=== PATIENT | male | born 1930 | race Caucasian/White ===

== ENCOUNTER 2018-01-22 05:40 | Inpatient (IN) ==
[2018-01-22] MEDS ORDERED: methylPREDNISolone 125 MG/2 ML VIAL IVP ONE (05:49)
[2018-01-22] MEDS ORDERED: Ipratropium/Albuterol Neb 3 ML IH ONE (05:49)
[2018-01-22] MEDS ORDERED: 0.9 % Sodium Chloride 500 ML IVC ONE (05:55)
--- NOTE | 2018-01-22 05:56 | Emergency Department Note ---
Disposition Clinical Impression: COPD exacerbation, Respiratory distress Disposition: Admitted As Inpatient Condition: Good Referrals: Batsheva Ochoa CNP [Primary Care Provider] - Forms: ED Satisfaction Letter Time of Disposition: 06:56 General Adult HPI - General Chief complaint: ED Shortness of Breath/Dyspnea Stated complaint: sob Time Seen by Provider: 01/22/18 05:44 Source: patient Mode of arrival: EMS Limitations: no limitations Nursing Notes Reviewed: Yes Vital Signs Reviewed: Yes - History of Present Illness HPI Narrative: 87-year-old male with history of COPD presents for evaluation of dyspnea. Patient states symptom onsets been over the past for 5 days. Patient was evaluated for 5 days ago and was diagnosed with bronchitis. Patient was given antibiotic shot as well as steroids. Patient is also given azithromycin. Family states the patient has all but 2 days left of the azithromycin. Patient states his symptoms have persisted. Patient does not wear oxygen at home. Patient notes a nonproductive cough. Patient is chest pain related to the cough. Patient denies any nausea or vomiting. Patient reports subjective fevers. Denies any abdominal pain. - Related Data Allergies Allergy/AdvReac Type Severity Reaction Status Date / Time No Known Allergies Allergy Verified 01/22/18 05:48 All systems ED: reviewed and negative except as stated. Constitutional: Reports: fever Cardiovascular: Reports: chest pain Respiratory: Reports: cough, dyspnea. Denies: sputum production Gastrointestinal: Denies: abdominal pain, nausea, vomiting Past Medical History - Past Medical History Source: patient Physical Exam - General Limitations: no limitations General appearance: alert, in no apparent distress - Head Head exam: atraumatic, normocephalic, normal inspection - Eye Eye exam: Present: normal appearance, PERRL, EOMI - ENT ENT exam: normal exam - Neck Neck exam: Present: normal inspection - Chest Chest inspection: Present: normal inspection - Respiratory Respiratory exam: Present: wheezes (Diffuse inspiratory and expiratory wheezes throughout), accessory muscle use, prolonged expiratory phase - Cardiovascular Cardiovascular exam: Present: normal rhythm, tachycardia. Absent: systolic murmur - Abdominal Exam Abdominal exam: Present: soft, Non-Tender - Extremities Exam Extremities exam: Present: normal inspection. Absent: pedal edema - Back Exam Back exam: Present: normal inspection - Neurological Exam Neurological exam: Present: alert - Skin Skin exam: Present: warm, dry, intact, normal color Course Course Narrative: Patient will get aerosols, steroids. Patient will also get basic labs chest x- ray disposition likely admission. - Reevaluation(s) Reevaluation #1: Patient seen and examined. Patient's breathing more comfortably. Patient has better air exchange. Patient was updated on plan of care. Patient will be admitted for COPD exacerbation. Time: 06:50 Vital Signs Temperature 98.1 F 01/22/18 05:49 Pulse Rate 95 01/22/18 05:49 Respiratory Rate 16 01/22/18 05:49 Blood Pressure 168/113 01/22/18 05:49 O2 Sat by Pulse Oximetry 88 01/22/18 05:49 Temperature 98.1 F 01/22/18 05:49 Pulse Rate 82 01/22/18 06:36 Respiratory Rate 30 01/22/18 06:36 Blood Pressure 160/104 01/22/18 06:36 O2 Sat by Pulse Oximetry 97 01/22/18 06:36 Oxygen Delivery Oxygen Delivery Bipap Medical Decision Making - MDM Narrative Medical decision making narrative: Patient presents with increased work of breathing and a history of COPD. Patient did have increased work of breathing requiring supplemental oxygen and BiPAP. Patient was treated with nebs and steroids. Patient's breathing improved. Patient was on azithromycin in the past. Given the patient's work of breathing with a nonproductive cough patient will be started on antibiotics. Patient will be admitted to the hospitalist service. Patient's symptoms are most consistent with a COPD exacerbation. Patient has no risk factors for pulmonary embolism. Patient denies any chest pain. - Lab Data Lab results reviewed: Yes I reviewed the patient's lab results. Result diagrams: 01/22/18 06:04 Lab Results 01/22/18 01/22/18 01/22/18 Range/Units 06:04 06:04 06:04 WBC 10.0 (4.3-11.1) K/mcL RBC 4.42 (4.19-5.50) M/mcL Hgb 15.0 (12.9-16.9) g/dL Hct 45.3 (37.5-50.1) % MCV 102.5 H (83.0-100.0) fL MCH 33.9 H (28.0-33.3) pg MCHC 33.1 (31.6-35.5) g/dL RDW 12.8 (11.5-14.5) % Plt Count 244 (140-400) K/mcL MPV 10.5 (9.4-12.4) fL Immature Gran % 0.4 (0-4) % Seg Neutrophils % 70.7 % Lymphocytes % 15.5 % Monocytes % 12.6 % Eosinophils % 0.3 % Basophils % 0.5 % Neutrophils # 7.1 (1.6-8.9) K/mcL Lymphocytes # 1.6 (0.6-4.6) K/mcL Monocytes # 1.3 (0.0-1.3) K/mcL Eosinophils # 0.0 (0.0-0.6) K/mcL Basophils # 0.1 (0.0-0.2) K/mcL VBG pH (7.32-7.42) pH Units VBG pCO2 (41-51) mmHg VBG pO2 (25-50) mmHg VBG HCO3 (21-27) mEq/L Lactic Acid 1.1 (0.5-2.2) mmol/L Troponin I 0.03 (< 0.04) ng/mL B-Natriuretic Peptide (Less than 100) pg/mL 01/22/18 01/22/18 Range/Units 06:04 06:20 WBC (4.3-11.1) K/mcL RBC (4.19-5.50) M/mcL Hgb (12.9-16.9) g/dL Hct (37.5-50.1) % MCV (83.0-100.0) fL MCH (28.0-33.3) pg MCHC (31.6-35.5) g/dL RDW (11.5-14.5) % Plt Count (140-400) K/mcL MPV (9.4-12.4) fL Immature Gran % (0-4) % Seg Neutrophils % % Lymphocytes % % Monocytes % % Eosinophils % % Basophils % % Neutrophils # (1.6-8.9) K/mcL Lymphocytes # (0.6-4.6) K/mcL Monocytes # (0.0-1.3) K/mcL Eosinophils # (0.0-0.6) K/mcL Basophils # (0.0-0.2) K/mcL VBG pH 7.39 (7.32-7.42) pH Units VBG pCO2 42 (41-51) mmHg VBG pO2 65 H (25-50) mmHg VBG HCO3 26 (21-27) mEq/L Lactic Acid (0.5-2.2) mmol/L Troponin I (< 0.04) ng/mL B-Natriuretic Peptide 295 H (Less than 100) pg/mL - Radiology Data Radiology results reviewed: Yes I reviewed the patient's radiology results. Chest X-Ray 01/22/18 05:49 IMPRESSION: No acute cardiopulmonary findings. Pulmonary hyperinflation may reflect underlying obstructive small airways disease such as asthma or COPD in a smoker. D/ / Navneet Silva / Navneet Silva Interpreting Provider: Navneet Silva - EKG Data EKG #1 EKG attestation: Yes I reviewed and interpreted this EKG. EKG shows normal: sinus rhythm Rate: normal Rhythm: NSR [place]/QRS: LAHB/LAFB Q waves: v1, v2, v3 Interpretation: no acute changes S.B.A.R. - S.B.A.R. Situation: Demographics Background: Presenting Complaint Assessment: Vital Signs Recommendation: Barrier(s) to disposition, Recommendation based on pending studies, treatments, or consults S.B.A.R. Report Given to: Dr. Jonah BrandB.AAston Repor Time: 06:51
[2018-01-22] MEDS ORDERED: Azithromycin 500 MG in D5% in Water 250 ML IVPB ONE (06:20)
[2018-01-22 06:22] LABS: VBG HCO3 26 mEq/L (21-27); VBG PCO2 42 mmHg (41-51); VBG PH 7.39 pH Units (7.32-7.42); VBG PO2 65 mmHg (25-50)
[2018-01-22] MEDS ORDERED: Levofloxacin 750 MG/150 ML 750 MG/150 ML BAG IVPB ONE (06:27)
--- NOTE | 2018-01-22 06:27 | Emergency Department Note ---
Disposition Clinical Impression: COPD exacerbation, Respiratory distress Disposition: Admitted As Inpatient Condition: Good General Adult HPI - General Chief complaint: ED Shortness of Breath/Dyspnea Stated complaint: SHAUNA Time Seen by Provider: 01/22/18 05:44 Source: patient Mode of arrival: EMS Limitations: no limitations Nursing Notes Reviewed: Yes Vital Signs Reviewed: Yes - History of Present Illness Pain Scale: 0 - Related Data Home Medications Medication Instructions Recorded Confirmed Albuterol Neb [Proventil Neb] 2.5 mg IH Q4-6H PRN 01/22/18 01/22/18 Aspirin [Lo-Dose Aspirin EC] 81 mg PO DAILY 01/22/18 01/22/18 Benzonatate [Tessalon] 100 mg PO Q8H PRN 01/22/18 01/22/18 Carvedilol 3.125 mg PO BID 01/22/18 01/22/18 Ergocalciferol (VITAMIN D2) 50,000 unit PO 2XW 01/22/18 01/22/18 [Vitamin D2] Levothyroxine Sodium [Levoxyl] 112 mcg PO DAILY 01/22/18 01/22/18 Previous Rx's Medication Instructions Recorded Levofloxacin [Levaquin] 750 mg PO DAILY 4 Days #4 tablet 01/24/18 predniSONE [PredniSONE] See Taper PO BIDWM 12 Days #28 01/24/18 tablet Allergies Allergy/AdvReac Type Severity Reaction Status Date / Time No Known Allergies Allergy Verified 01/22/18 05:48 Constitutional: Reports: fever Cardiovascular: Reports: chest pain Respiratory: Reports: cough, dyspnea. Denies: sputum production Gastrointestinal: Denies: abdominal pain, nausea, vomiting Past Medical History - Past Medical History Medical history: Reports: hypertension, thyroid disease Psychiatric history: Reports: no psych history - Social History Smoking Status: Current every day smoker Smokeless Tobacco Status: No Alcohol use: Reports: none Drug use: Reports: none Physical Exam - General Limitations: no limitations General appearance: alert, in no apparent distress Course Vital Signs Temperature 98.1 F 01/22/18 05:49 Pulse Rate 95 01/22/18 05:49 Respiratory Rate 16 01/22/18 05:49 Blood Pressure 168/113 01/22/18 05:49 O2 Sat by Pulse Oximetry 88 01/22/18 05:49 Temperature 97.8 F 01/24/18 09:00 Pulse Rate 73 01/24/18 09:00 Respiratory Rate 15 01/24/18 09:00 Blood Pressure 141/76 01/24/18 09:00 O2 Sat by Pulse Oximetry 92 01/24/18 09:00 Oxygen Delivery Oxygen Delivery Bipap Medical Decision Making - Lab Data Result diagrams: 01/24/18 04:34 01/24/18 04:34 Lab Results 01/22/18 01/22/18 01/22/18 Range/Units 06:04 06:04 06:04 WBC 10.0 (4.3-11.1) K/mcL RBC 4.42 (4.19-5.50) M/mcL Hgb 15.0 (12.9-16.9) g/dL Hct 45.3 (37.5-50.1) % MCV 102.5 H (83.0-100.0) fL MCH 33.9 H (28.0-33.3) pg MCHC 33.1 (31.6-35.5) g/dL RDW 12.8 (11.5-14.5) % Plt Count 244 (140-400) K/mcL MPV 10.5 (9.4-12.4) fL Immature Gran % 0.4 (0-4) % Seg Neutrophils % 70.7 % Lymphocytes % 15.5 % Monocytes % 12.6 % Eosinophils % 0.3 % Basophils % 0.5 % Neutrophils # 7.1 (1.6-8.9) K/mcL Lymphocytes # 1.6 (0.6-4.6) K/mcL Monocytes # 1.3 (0.0-1.3) K/mcL Eosinophils # 0.0 (0.0-0.6) K/mcL Basophils # 0.1 (0.0-0.2) K/mcL VBG pH (7.32-7.42) pH Units VBG pCO2 (41-51) mmHg VBG pO2 (25-50) mmHg VBG HCO3 (21-27) mEq/L Sodium 134 L (136-145) mEq/L Potassium 4.3 (3.5-5.1) mEq/L Chloride 102 (98-107) mEq/L Carbon Dioxide 23 (23-29) mEq/L BUN 25 H (8-23) mg/dL Creatinine 1.25 (0.70-1.30) mg/dL Est GFR ( Amer) > 60 (> 60) Est GFR (Non-Af Amer) 55 L (> 60) BUN/Creatinine Ratio 20 (6-26) Glucose 143 H (70-105) mg/dL Calculated Osmolality 285 (280-300) Lactic Acid 1.1 (0.5-2.2) mmol/L Calcium 9.9 (8.6-10.3) mg/dL Troponin I 0.03 (< 0.04) ng/mL B-Natriuretic Peptide (Less than 100) pg/mL 01/22/18 01/22/18 01/22/18 Range/Units 06:04 06:20 07:49 WBC (4.3-11.1) K/mcL RBC (4.19-5.50) M/mcL Hgb (12.9-16.9) g/dL Hct (37.5-50.1) % MCV (83.0-100.0) fL MCH (28.0-33.3) pg MCHC (31.6-35.5) g/dL RDW (11.5-14.5) % Plt Count (140-400) K/mcL MPV (9.4-12.4) fL Immature Gran % (0-4) % Seg Neutrophils % % Lymphocytes % % Monocytes % % Eosinophils % % Basophils % % Neutrophils # (1.6-8.9) K/mcL Lymphocytes # (0.6-4.6) K/mcL Monocytes # (0.0-1.3) K/mcL Eosinophils # (0.0-0.6) K/mcL Basophils # (0.0-0.2) K/mcL VBG pH 7.39 (7.32-7.42) pH Units VBG pCO2 42 (41-51) mmHg VBG pO2 65 H (25-50) mmHg VBG HCO3 26 (21-27) mEq/L Sodium (136-145) mEq/L Potassium (3.5-5.1) mEq/L Chloride (98-107) mEq/L Carbon Dioxide (23-29) mEq/L BUN (8-23) mg/dL Creatinine (0.70-1.30) mg/dL Est GFR ( Amer) (> 60) Est GFR (Non-Af Amer) (> 60) BUN/Creatinine Ratio (6-26) Glucose (70-105) mg/dL Calculated Osmolality (280-300) Lactic Acid 1.0 (0.5-2.2) mmol/L Calcium (8.6-10.3) mg/dL Troponin I (< 0.04) ng/mL B-Natriuretic Peptide 295 H (Less than 100) pg/mL Attestation Statement - Attestation Attestation: I examined this patient and my medical decision-making was reviewed with the Resident Physician. I agree with the documented findings, disposition and treatment plan as described except to the extent set forth below. Findings consistent with COPD exacerbation. Plan to place patient on BiPAP as he feels like he wants a rest from struggling to breathe. Bronchodilators, steroids, antibiotics will be given. Patient be admitted for further management.
[2018-01-22 06:30] LABS: Basophils # 0.1 K/mcL (0.0-0.2); Basophils % 0.5 %; Eosinophils % 0.3 %; Hematocrit 45.3 % (37.5-50.1); Immature Granulocytes % 0.4 % (0-4); Lymphocytes # 1.6 K/mcL (0.6-4.6); Lymphocytes % 15.5 %; Mean Corpuscular HGB Conc 33.1 g/dL (31.6-35.5); Mean Corpuscular Hemoglobin 33.9 pg (28.0-33.3); Mean Corpuscular Volume 102.5 fL (83.0-100.0); Mean Platelet Volume 10.5 fL (9.4-12.4); Monocytes # 1.3 K/mcL (0.0-1.3); Monocytes % 12.6 %; Neutrophils # 7.1 K/mcL (1.6-8.9); Platelet Count 244 K/mcL (140-400); Red Blood Count 4.42 M/mcL (4.19-5.50); Red Cell Distribution Width 12.8 % (11.5-14.5); Segmented Neutrophils % 70.7 %
[2018-01-22 06:45] LABS: Troponin I 0.03 ng/mL (< 0.04)
[2018-01-22 07:17] LABS: Blood Urea Nitrogen 25 mg/dL (8-23); Calcium 9.9 mg/dL (8.6-10.3); Carbon Dioxide 23 mEq/L (23-29); Chloride 102 mEq/L (98-107); Glucose 143 mg/dL (70-105); Osmolality,Calculated 285 (280-300); Potassium 4.3 mEq/L (3.5-5.1); Sodium 134 mEq/L (136-145)
[2018-01-22 07:51] LABS: BUN/Creatinine Ratio 20 (6-26); eGFR For African Americans > 60 (> 60); eGFR For Non-African Americans 55 (> 60)
[2018-01-22] MEDS ORDERED: Naloxone 0.4 MG/ML INJ IVP PRN (08:31)
[2018-01-22] MEDS ORDERED: Isovue-370 500 ML INFUS..BTL IV ONE (08:47)
--- NOTE | 2018-01-22 09:58 | Internal Med History&Physical ---
<Noa Gilman - Last Filed: 01/22/18 09:53> Date of Encounter: 01/22/18 Time of Encounter: 09:53 Internal Medicine - H&P: HPI Chief complaint: Shortness of breath and not feeling well Admitted From: Home Plans for Post Hospital Care: Home History of present illness: Mr. Vale is a 87 year old male with PMH hypertension, CAD, COPD, hypothyroidism and tobacco use who presented to [facility] on 01/22/2018 with complaints of worsening shortness of breath. He was placed in observation status for further workup and treatment. Information obtained from chart review, patient report and daughter at bedside. Patient defers most questions to daughter. Daughter reports patient started feeling sick possibly 3 -4 days ago with seen at local urgent care and was given a Z-Kevyn and IM steroids. He has not improved and feels shortness of breath, cough has worsened since that time. Has a productive cough at time, no fever or chills. He does complain of generalized weakness and malaise. Chest pain. He also reports unintentional weight loss of approximately 40 pounds over the last several years. Says he recently had does not have an appetite and feels like food is getting stuck in his throat. He overall feels better from when he originally presented to ER. Past Med Surg Social Fam HX - Past Medical History Medical history: hypertension, thyroid disease Psychiatric history: no psych history - Past Surgical History Surgical History: non-contributory - Social History Smoking Status: Current every day smoker Smokeless Tobacco Status: No Alcohol use: none Drug use: none - Additional Family History Additional family history: reviewed with patient and family history noncontributory Internal Medicine - H&P: Meds Albuterol Neb [Proventil Neb] 2.5 mg IH Q4-6H PRN 01/22/18 [History] Aspirin [Lo-Dose Aspirin EC] 81 mg PO DAILY 01/22/18 [History] Azithromycin [Azithromycin 6-Tab Pack] 250 mg PO PER PKG DI 01/22/18 [History] Benzonatate [Tessalon] 100 mg PO Q8H PRN 01/22/18 [History] Carvedilol 3.125 mg PO BID 01/22/18 [History] Ergocalciferol (VITAMIN D2) [Vitamin D2] 50,000 unit PO 2XW 01/22/18 [History] Levothyroxine Sodium [Levoxyl] 112 mcg PO DAILY 01/22/18 [History] 3 Allergy/AdvReac Type Severity Reaction Status Date / Time No Known Allergies Allergy Verified 01/22/18 05:48 All Systems PM: A 10-system review of systems was performed and is negative for pertinent findings except as documented above in the HPI. - Constitutional Constitutional: malaise, weight loss, no chills, no fever(s), no night sweats - EENT Eyes: no change in vision, no discharge, no pain, no photophobia Ears: no ear discharge, no ear pain, no tinnitus Nose, mouth and throat: no dysphagia, no nasal discharge, no neck pain, no sore throat - Cardiovascular Cardiovascular ROS IM: no chest pain, no diaphoresis, no dyspnea, no lightheadedness, no palpitations, no syncope - Respiratory Respiratory: cough, dyspnea on exertion, wheezing, no dyspnea, no excessive phlegm production - Gastrointestinal Gastrointestinal: dysphagia, no abdominal pain, no diarrhea, no hematemesis, no hematochezia, no melena, no nausea, no vomiting - Musculoskeletal Musculoskeletal ROS IM: no numbness, no tingling - Integumentary Integumentary IM: no rash, no unusual bruising - Neurological Neurological ROS: no confusion, no convulsions, no focal weakness, no numbness, no tingling, no tremor(s) - Hematologic/Lymphatic Hematologic/Lymphatic: no easy bruising - Constitutional Vitals: Temp Pulse Resp BP Pulse Ox 98.3 F 78 16 138/86 95 01/22/18 08:08 01/22/18 08:08 01/22/18 08:08 01/22/18 08:08 01/22/18 08:08 General appearance: Present: cachectic, A&O X 3, no acute distress - Head Head exam: Present: atraumatic, normocephalic - Eye Eye exam: Present: PERRL, conjuntiva pink, sclera anicteric Pupils: Present: PERRL - Neck Neck exam general surgery: Present: supple, trachea midline. Absent: lymphadenopathy - Respiratory Respiratory exam: Present: wheezes. Absent: accessory muscle use, rales, rhonchi - Cardiovascular Cardiovascular exam: Present: RRR, +S1, +S2. Absent: diastolic murmur, gallop, rubs, systolic murmur - GI/Abdominal GI/Abdominal exam: Present: normal bowel sounds, soft, no peritoneal signs. Absent: distended, tenderness - Extremities Exam Extremities exam: Present: warm, radial pulses palpable and symmetrical. Absent : calf tenderness, cyanotic, pedal edema - Neurological Exam Neurological exam: Present: CN II-XII intact, oriented X3, no focal deficits. Absent: pronater drift, facial droop, speech deficit - Skin Skin exam: Present: dry, intact Internal Med - H&P Results - Labs CBC & Chem 7: 01/22/18 06:04 01/22/18 06:04 - Assessment and plan (1) COPD exacerbation Current Visit: Yes Status: Acute Assessment and plan: has known COPD. Current smoker. Recently treated for COPD outpatient with Z- Kevyn and IM steroids. Now with worsening shortness of breath and cough. CXR with evidence of COPD, no infiltrate. SOB improved in ED with steroids and bronchodilators. Continue IV Levaquin, IV steroids and DuoNeb's. Respiratory PCR, urinary antigens, chest CT pending (2) Dysphagia Current Visit: Yes Status: Acute Assessment and plan: reports having trouble swallowing and often feels like food gets stuck in his throat. With associated unintentional 40 pound weight loss over the last few years and now with decreased appetite. GI consulted Qualifiers: Dysphagia type: unspecified Qualified Code(s): R13.10 - Dysphagia, unspecified (3) Essential hypertension Current Visit: Yes Status: Acute Assessment and plan: per hx. BP controlled. Continue home BP medication. Monitor BP and titrate PRN (4) Hypothyroidism Current Visit: Yes Status: Acute Assessment and plan: per hx. Cont home levothyroxine Qualifiers: Hypothyroidism type: acquired Qualified Code(s): E03.9 - Hypothyroidism, unspecified (5) CAD (coronary artery disease) Current Visit: Yes Status: Acute Assessment and plan: hx NM. Asymptomatic, denied CP. EKG without acute ST changes. Continue home ASA, BB. Qualifiers: Coronary Disease-Associated Artery/Lesion type: [place] artery [place] vs. transplanted heart: [place] heart Associated angina: without angina Qualified Code(s): I25.10 - Atherosclerotic heart disease of [place] coronary artery without angina pectoris (6) DVT prophylaxis Current Visit: Yes Status: Acute Assessment and plan: heparin - Time Spent With Patient Total time spent is greater than 50% in coordination of care (as documented) at patient's floor/unit and/or counseling patient: <Alma Weinstein - Last Filed: 01/22/18 11:02> Date of Encounter: 01/22/18 Internal Medicine - H&P: HPI History of present illness: Mr. Vale is a 87 year old male All Systems PM: A 10-system review of systems was performed and is negative for pertinent findings except as documented above in the HPI. - Constitutional Vitals: Temp Pulse Resp BP Pulse Ox 98.3 F 78 16 138/86 95 01/22/18 08:08 01/22/18 08:08 01/22/18 08:08 01/22/18 08:08 01/22/18 08:08 Internal Med - H&P Results - Labs CBC & Chem 7: 01/22/18 06:04 01/22/18 06:04 - Attending Attestation Examine the patient. Reviewed the note and agreed with plan of care. Plan for EGD tomorrow morning by GI specialist for dysphagia. CT chest ordered. - Assessment and plan (1) COPD exacerbation Current Visit: Yes Status: Acute (2) Essential hypertension Current Visit: Yes Status: Acute (3) Hypothyroidism Current Visit: Yes Status: Acute Qualifiers: Hypothyroidism type: acquired Qualified Code(s): E03.9 - Hypothyroidism, unspecified (4) CAD (coronary artery disease) Current Visit: Yes Status: Acute Qualifiers: Coronary Disease-Associated Artery/Lesion type: [place] artery [place] vs. transplanted heart: [place] heart Associated angina: without angina Qualified Code(s): I25.10 - Atherosclerotic heart disease of [place] coronary artery without angina pectoris (5) Dysphagia Current Visit: Yes Status: Acute Qualifiers: Dysphagia type: unspecified Qualified Code(s): R13.10 - Dysphagia, unspecified (6) DVT prophylaxis Current Visit: Yes Status: Acute - Time Spent With Patient Total time spent is greater than 50% in coordination of care (as documented) at patient's floor/unit and/or counseling patient:
[2018-01-22] MEDS: Aspirin Enteric Coated 81 MG Tablet PO SCH (10:23)
[2018-01-22] MEDS: Albuterol 2.5 MG/3 ML NEBULIZER IH SCH ×4 (11:27→20:39)
[2018-01-22] MEDS: MethylPREDNISolone 40 MG/ML VIAL IVP SCH ×2 (11:41→17:38)
--- NOTE | 2018-01-22 13:35 | Gastroenterology Consult Note ---
<Sierra Oreilly M - Last Filed: 01/22/18 13:30> Date of Encounter: 01/22/18 Time of Encounter: 11:30 - Assessment and plan (1) Dysphagia Current Visit: Yes Status: Acute Assessment and plan: Pt admitted with COPD exac. He is also complaining of dysphagia and odynophagia. He needs EGD, to evaluate for esophagitis, tumors, or intrinsic strictures. Will hold prophylactic heparin until after procedure. Qualifiers: Dysphagia type: unspecified Qualified Code(s): R13.10 - Dysphagia, unspecified - Time Spent With Patient Total time spent is greater than 50% in coordination of care (as documented) at patient's floor/unit and/or counseling patient: GI History of Present Illness - Data of Consult Patient: new to practice Consult date: 01/22/18 Requesting Physician: Scott Mckenzie MD - Consult Narrative Reason for consult: dysphagia/weight loss History of present illness: Mr. Vale is a 87 year old male with PMH hypertension, CAD, COPD, hypothyroidism and tobacco use who presented to [facility] on 01/22/2018 with complaints of worsening shortness of breath. He was admitted with COPD exacerbation. He does complain of generalized weakness and malaise. Chest pain. He also reports unintentional weight loss of approximately 40 pounds over the last several years. Says he recently had does not have an appetite and feels like food is getting stuck in his throat. He is also complaining of odynophagia. He denies GERD, nausea, vomiting, abdominal pain, bloody or tarry stools. EGD: denies Colonoscopy: > 10 years ago [place] NSAIDS:denies Anticoagulants: denies Past Med Surg Social Fam HX - Past Medical History Medical history: hypertension, thyroid disease Psychiatric history: no psych history - Past Surgical History Surgical History: non-contributory - Social History Smoking Status: Current every day smoker Smokeless Tobacco Status: No Alcohol use: none Drug use: none Review of Systems: GI: as per [place] GENERAL: denies fever or chills EYES: denies yellow discoloration ENT: pain with swallowing and difficulty swallowing CARDIO: denies chest pain, palpitations RESP: Shortness of breath with exertion : denies change in color of urine NEURO: weakness HEME: Denies any bruising MS: denies joint pain, joint swelling or back pain. DERM: denies rash or itching PSYCH: Denies history of anxiety or depression - Constitutional Vitals: Temp Pulse Resp BP Pulse Ox 98.3 F 78 16 138/86 95 01/22/18 08:08 01/22/18 08:08 01/22/18 08:08 01/22/18 08:08 01/22/18 08:08 Exam: CONSTITUTIONAL:~alert, no acute distress.~HEAD:~normocephalic.~EYES:~no jaundice.~NECK:~no obvious swelling.~HEART:~regular rate and rhythm, no murmurs. ~LUNGS:~bilateral poor air entry, expiratory wheezes.~ABDOMEN:~non distended, soft, non tender, no masses palpable, no organomegaly, cachectic.~RECTAL EXAM:~ Deferred.~EXTREMITIES:~no clubbing, cyanosis or edema.~SKIN:~no stigmata of chronic liver disease.~NEUROLOGIC:~no obvious focal defect.~~~~ Results - Labs CBC & Chem 7: 01/22/18 06:04 01/22/18 06:04 Labs: Last Result Calcium 9.9 mg/dL (8.6-10.3) 01/22/18 06:04 Troponin I 0.03 ng/mL (< 0.04) 01/22/18 06:04 Entire Visit Hgb 15.0 g/dL (12.9-16.9) 01/22/18 06:04 Hct 45.3 % (37.5-50.1) 01/22/18 06:04 Consult Discharge Plan - Plan Referrals: Batsheva Ochoa, LEAD TRAINER [Primary Care Provider] - (WEB REQUEST SENT ON 01/22/18) <Jeison Aly - Last Filed: 01/22/18 20:38> Date of Encounter: 01/22/18 Time of Encounter: 19:00 - Time Spent With Patient Total time spent is greater than 50% in coordination of care (as documented) at patient's floor/unit and/or counseling patient: GI History of Present Illness - Data of Consult Requesting Physician: Scott Mckenzie MD - Consult Narrative History of present illness: Mr. Vale is a 87 year old male - Constitutional Vitals: Temp Pulse Resp BP Pulse Ox 97.9 F 72 17 116/77 92 01/22/18 20:21 01/22/18 20:21 01/22/18 20:21 01/22/18 20:21 01/22/18 20:21 Results - Labs CBC & Chem 7: 01/22/18 06:04 01/22/18 06:04 Labs: Last Result Calcium 9.9 mg/dL (8.6-10.3) 01/22/18 06:04 Troponin I 0.03 ng/mL (< 0.04) 01/22/18 06:04 Entire Visit Hgb 15.0 g/dL (12.9-16.9) 01/22/18 06:04 Hct 45.3 % (37.5-50.1) 01/22/18 06:04 - Attending Attestation I have personally performed a face to face evaluation on this patient. I have reviewed and agree with the care plan. History and Exam by me shows: Pt seen. Patient with dysphagia. As any use of blood thinner Recommendation EGD and if no mass then possible dilation
[2018-01-22 13:53] LABS: Adenovirus Not Detected (Not Detect); Bordetella Pertussis Not Detected (Not Detect); Chlamydophila pneumoniae Not Detected (Not Detect); Coronavirus 229E Not Detected (Not Detect); Coronavirus HKU1 Not Detected (Not Detect); Coronavirus NL63 Not Detected (Not Detect); Coronavirus OC43 Not Detected (Not Detect); Human Metapneumovirus ***DETECTED*** (Not Detect); Human Rhinovirus/Enterovirus Not Detected (Not Detect); Influenza A Subtype 2009 H1 Not Detected (Not Detect); Influenza A Untypeable Not Detected (Not Detect); Influenza B Not Detected (Not Detect); Mycoplasma pneumoniae Not Detected (Not Detect); Parainfluenza Virus 1 Not Detected (Not Detect); Parainfluenza Virus 2 Not Detected (Not Detect); Parainfluenza Virus 3 Not Detected (Not Detect); Parainfluenza Virus 4 Not Detected (Not Detect); Respiratory Syncytial Virus Not Detected (Not Detect)
[2018-01-23] MEDS: MethylPREDNISolone 40 MG/ML VIAL IVP SCH ×5 (00:21→23:42)
[2018-01-23] MEDS: Albuterol 2.5 MG/3 ML NEBULIZER IH SCH ×3 (00:33→07:36)
[2018-01-23 04:31] LABS: Hematocrit 39.1 % (37.5-50.1); Mean Corpuscular HGB Conc 33.2 g/dL (31.6-35.5); Mean Corpuscular Volume 99.2 fL (83.0-100.0); Mean Platelet Volume 10.2 fL (9.4-12.4); Platelet Count 217 K/mcL (140-400); Red Blood Count 3.94 M/mcL (4.19-5.50); Red Cell Distribution Width 12.6 % (11.5-14.5)
[2018-01-23 04:59] LABS: Alanine Aminotransferase 9 Units/L (7-52); Albumin 3.7 g/dL (3.5-5.7); Albumin/Globulin Ratio 1.2 (1.1-2.2); Alkaline Phosphatase 79 Units/L (34-104); Aspartate Amino Transferase 13 Units/L (13-39); BUN/Creatinine Ratio 27 (6-26); Bilirubin,Total 0.4 mg/dL (0.3-1.0); Blood Urea Nitrogen 32 mg/dL (8-23); Calcium 9.6 mg/dL (8.6-10.3); Carbon Dioxide 23 mEq/L (23-29); Chloride 104 mEq/L (98-107); Glucose 173 mg/dL (70-105); Osmolality,Calculated 291 (280-300); Sodium 135 mEq/L (136-145); Total Protein 6.7 g/dL (6.4-8.9); eGFR For African Americans > 60 (> 60); eGFR For Non-African Americans 57 (> 60)
[2018-01-23] MEDS: Levofloxacin 750 MG/150 ML 750 MG/150 ML BAG IVPB SCH (07:33)
[2018-01-23 08:53] LABS: INR 1.1; Prothrombin Time 11.8 Seconds (9.4-12.1)
[2018-01-23] MEDS ORDERED: Albuterol 2.5 MG/3 ML NEBULIZER IH PRN (10:11)
[2018-01-23] MEDS: Ipratropium/Albuterol Neb 3 ML IH SCH ×3 (11:11→21:19)
[2018-01-23] MEDS: Aspirin Enteric Coated 81 MG Tablet PO SCH (14:49)
--- NOTE | 2018-01-23 18:40 | Gastroenterology Progress Note ---
Date of Encounter: 01/23/18 Time of Encounter: 18:00 - Assessment and plan (1) Dysphagia Current Visit: Yes Status: Acute Assessment and plan: Patient with dysphagia and apparently had evaluation done by either ENT or by a surgeon with possible EGD many years ago. At This point patient do not want any EGD done if he wishes he can follow up with us as an outpatient. Was told that we can do his EGD in the morning with the possible dilation of esophagus but he is not interested Qualifiers: Dysphagia type: unspecified Qualified Code(s): R13.10 - Dysphagia, unspecified - Time Spent With Patient Total time spent is greater than 50% in coordination of care (as documented) at patient's floor/unit and/or counseling patient: - Subjective Interval history: Patient stay seen still complaining of come food sticking in his throat especially solid - Constitutional Vitals: Temp Pulse Resp BP Pulse Ox 97.5 F L 78 17 148/83 91 01/23/18 16:00 01/23/18 16:00 01/23/18 16:00 01/23/18 16:00 01/23/18 16:00 General appearance: Present: A&O X 0 Exam: Not in acute distress Results - Labs CBC & Chem 7: 01/23/18 04:02 01/23/18 04:02 Labs: Last Result Calcium 9.6 mg/dL (8.6-10.3) 01/23/18 04:02 Troponin I 0.03 ng/mL (< 0.04) 01/22/18 06:04 Entire Visit Hgb 13.0 g/dL (12.9-16.9) D 01/23/18 04:02 Hct 39.1 % (37.5-50.1) 01/23/18 04:02 PT 11.8 Seconds (9.4-12.1) 01/23/18 08:32 Total Bilirubin 0.4 mg/dL (0.3-1.0) 01/23/18 04:02 AST 13 Units/L (13-39) 01/23/18 04:02 ALT 9 Units/L (7-52) 01/23/18 04:02 - ABG ABG results: PT/INR, D-dimer PT 11.8 Seconds (9.4-12.1) 01/23/18 08:32 Consult Discharge Plan - Plan Referrals: Batsheva Ochoa CNP [Primary Care Provider] - (WEB REQUEST SENT ON 01/22/18)
--- NOTE | 2018-01-23 22:31 | Internal Med Progress Note ---
Date of Encounter: 01/23/18 Time of Encounter: 16:07 - Assessment and plan (1) COPD exacerbation Current Visit: Yes Status: Acute Assessment and plan: Improving. Recently treated for COPD outpatient with Z-Kevyn and IM steroids. CXR with evidence of COPD, no infiltrate. Continue IV Levaquin, IV steroids, and nebs. Will convert to PO steroids with continued improvement. (2) Dysphagia Current Visit: Yes Status: Chronic Assessment and plan: Reports having trouble swallowing and often feels like food gets stuck in his throat. With associated unintentional 40 pound weight loss over the last few years and now with decreased appetite. GI consulted; appreciate input. Patient not interested in EGD. Will start regular diet. Will order speech evaluation. Qualifiers: Dysphagia type: unspecified Qualified Code(s): R13.10 - Dysphagia, unspecified (3) Essential hypertension Current Visit: Yes Status: Chronic Assessment and plan: Continue home medications. (4) Hypothyroidism Current Visit: Yes Status: Chronic Assessment and plan: Continue home medications. Qualifiers: Hypothyroidism type: acquired Qualified Code(s): E03.9 - Hypothyroidism, unspecified (5) CAD (coronary artery disease) Current Visit: Yes Status: Chronic Assessment and plan: Continue home medications. Qualifiers: Coronary Disease-Associated Artery/Lesion type: [place] artery [place] vs. transplanted heart: [place] heart Associated angina: without angina Qualified Code(s): I25.10 - Atherosclerotic heart disease of [place] coronary artery without angina pectoris (6) DVT prophylaxis Current Visit: Yes Status: Acute Assessment and plan: Continue heparin. - Time Spent With Patient Total time spent is greater than 50% in coordination of care (as documented) at patient's floor/unit and/or counseling patient: - Subjective Interval history: Patient had no acute events overnight. He is frustrated today because he has not been able to eat due to scheduled endoscopy. He states that he does not want EGD anymore. He was evaluated for his dysphagia years back, and nothing was found. He wants something to eat. I counselled him on the risks of not getting EGD done. He states that he still has mild SOB, but improved from yesterday. He denies chest pain, fever, chills, nausea, or vomiting. He has no other complaints. - Constitutional Vitals: Temp Pulse Resp BP Pulse Ox 97.9 F 68 14 157/87 92 04/26/18 21:03 01/23/18 21:03 01/23/18 21:20 01/23/18 21:03 01/23/18 21:20 General appearance: Present: cachectic, cooperative, A&O X 3, no acute distress , answers questions appropriately. Absent: pleasant - Respiratory Respiratory exam: Absent: accessory muscle use, rales, rhonchi, wheezes Additional comments: Mildly labored WOB, coarse breath sounds bilaterally - Cardiovascular Cardiovascular exam: Present: RRR, +S1, +S2. Absent: diastolic murmur, gallop, systolic murmur Additional comments: No BLE edema - GI/Abdominal GI/Abdominal exam: Present: normal bowel sounds, soft. Absent: distended, hepatomegaly, mass, splenomegaly, tenderness - Psychiatric Psychiatric exam: Present: agitated, normal affect, normal mood. Absent: anxious, depressed - Skin Skin exam: Present: dry, intact, warm. Absent: cyanosis, rash Internal Medicine: Result - Labs CBC & Chem 7: 01/23/18 04:02 01/23/18 04:02 Labs: Short CBC 01/23/18 Range/Units 04:02 WBC 6.4 (4.3-11.1) K/mcL Hgb 13.0 D (12.9-16.9) g/dL Hct 39.1 (37.5-50.1) % Plt Count 217 (140-400) K/mcL [facility] 01/23/18 04:02 Sodium 135 L Potassium 4.0 Chloride 104 Carbon Dioxide 23 BUN 32 H Creatinine 1.20 Glucose 173 H Calcium 9.6 Liver Function 01/23/18 Range/Units 04:02 Total Bilirubin 0.4 (0.3-1.0) mg/dL AST 13 (13-39) Units/L ALT 9 (7-52) Units/L Alkaline Phosphatase 79 (34-104) Units/L Albumin 3.7 (3.5-5.7) g/dL - ABG Interpretation ABG results: PT/INR, D-dimer PT 11.8 Seconds (9.4-12.1) 01/23/18 08:32 Consult Discharge Plan - Plan Referrals: Batsheva Ochoa, MILITARY ANALYST [Primary Care Provider] - (WEB REQUEST SENT ON 01/22/18)
[2018-01-23] MEDS: *HR* Heparin 5,000 UNIT/ML VIAL SQ SCH (23:42)
[2018-01-24] MEDS: Ipratropium/Albuterol Neb 3 ML IH SCH ×2 (03:23→10:05)
[2018-01-24 05:18] LABS: Basophils % 0.1 %; Hematocrit 39.2 % (37.5-50.1); Hemoglobin 13.3 g/dL (12.9-16.9); Immature Granulocytes % 0.4 % (0-4); Lymphocytes # 1.1 K/mcL (0.6-4.6); Lymphocytes % 9.7 %; Mean Corpuscular HGB Conc 33.9 g/dL (31.6-35.5); Mean Corpuscular Hemoglobin 33.7 pg (28.0-33.3); Mean Corpuscular Volume 99.2 fL (83.0-100.0); Mean Platelet Volume 10.3 fL (9.4-12.4); Monocytes # 0.3 K/mcL (0.0-1.3); Monocytes % 2.9 %; Neutrophils # 9.8 K/mcL (1.6-8.9); Platelet Count 251 K/mcL (140-400); Red Blood Count 3.95 M/mcL (4.19-5.50); Red Cell Distribution Width 12.8 % (11.5-14.5); Segmented Neutrophils % 86.9 %
[2018-01-24 05:34] LABS: BUN/Creatinine Ratio 35 (6-26); Blood Urea Nitrogen 42 mg/dL (8-23); Calcium 9.8 mg/dL (8.6-10.3); Carbon Dioxide 22 mEq/L (23-29); Chloride 103 mEq/L (98-107); Glucose 167 mg/dL (70-105); Osmolality,Calculated 296 (280-300); Potassium 3.8 mEq/L (3.5-5.1); Sodium 136 mEq/L (136-145); eGFR For African Americans > 60 (> 60); eGFR For Non-African Americans 57 (> 60)
[2018-01-24] MEDS: MethylPREDNISolone 40 MG/ML VIAL IVP SCH ×2 (05:37→14:09)
[2018-01-24] MEDS: *HR* Heparin 5,000 UNIT/ML VIAL SQ SCH ×2 (05:37→14:09)
[2018-01-24] MEDS: Levofloxacin 750 MG/150 ML 750 MG/150 ML BAG IVPB SCH (06:56)
[2018-01-24] MEDS ORDERED: Levofloxacin 750 MG/150 ML 750 MG/150 ML BAG IVPB SCH (09:00)
[2018-01-24 09:19] VITALS: BP 141/76
[2018-01-24] MEDS: Aspirin Enteric Coated 81 MG Tablet PO SCH (09:45)
--- NOTE | 2018-01-24 12:57 | Discharge Summary ---
- NOTES TO OUTPATIENT PROVIDER Notes to Outpatient Provider: Follow up with PCP in 2-3 days after discharge. Date of Encounter: 01/24/18 Time of Encounter: 12:55 - Discharge Diagnosis (1) COPD exacerbation Priority: Primary Status: Acute (2) Bronchopneumonia Priority: Secondary Status: Acute (3) Dysphagia Priority: Secondary Status: Chronic Qualifiers: Dysphagia type: unspecified Qualified Code(s): R13.10 - Dysphagia, unspecified (4) Essential hypertension Priority: Secondary Status: Chronic (5) Hypothyroidism Priority: Secondary Status: Chronic Qualifiers: Hypothyroidism type: acquired Qualified Code(s): E03.9 - Hypothyroidism, unspecified (6) CAD (coronary artery disease) Priority: Secondary Status: Chronic Qualifiers: Coronary Disease-Associated Artery/Lesion type: [place] artery [place] vs. transplanted heart: [place] heart Associated angina: without angina Qualified Code(s): I25.10 - Atherosclerotic heart disease of [place] coronary artery without angina pectoris (7) DVT prophylaxis Priority: Secondary Status: Acute Hospital course: Mr. Vale is a 87 year old white male admitted for COPD exacerbation and LLL bronchopneumonia. He was admitted to general medical floor. He was started on IV levaquin, IV solumedrol, nebs, and supplemental O2. He was qualified for home O2 due to unable to wean off. His respiratory status improved throughout admission. He has a history of chronic dysphagia and a subacute significant weight loss. GI was consulted, and he was scheduled for endoscopy, but he later refused procedure. ST was consulted and he was placed on advanced soft diet with chopped meats and Ensure Enliven supplementation BID. He will be discharged home with 4 more days of PO levaquin and a prednisone taper. He states that he is almost back to his normal breathing, and he wants to go home. Patient has met maximum benefit of this hospitalization and will be discharged home in stable condition. Discharge discussed with: patient, nurse, other (Pharmacist) - Time Spent with Patient Total time spent providing and/or coordinating discharge services: Greater than 30 minutes - Discharge Medications Prescriptions: Levofloxacin [Levaquin] 750 mg PO DAILY 4 Days #4 tablet predniSONE [PredniSONE] See Taper PO BIDWM 12 Days #28 tablet Home Medications: Albuterol Neb [Proventil Neb] 2.5 mg IH Q4-6H PRN 01/22/18 [History] Aspirin [Lo-Dose Aspirin EC] 81 mg PO DAILY 01/22/18 [History] Benzonatate [Tessalon] 100 mg PO Q8H PRN 01/22/18 [History] Carvedilol 3.125 mg PO BID 01/22/18 [History] Ergocalciferol (VITAMIN D2) [Vitamin D2] 50,000 unit PO 2XW 01/22/18 [History] Levothyroxine Sodium [Levoxyl] 112 mcg PO DAILY 01/22/18 [History] Levofloxacin [Levaquin] 750 mg PO DAILY 4 Days #4 tablet 01/24/18 [Rx] predniSONE [PredniSONE] See Taper PO BIDWM 12 Days #28 tablet 01/24/18 [Rx] Allergies/Adverse Reactions: 3 Allergy/AdvReac Type Severity Reaction Status Date / Time No Known Allergies Allergy Verified 01/22/18 05:48 Date of admission: 01/22/18 10:47 Primary care physician: Batsheva Ochoa CNP Consults: 01/23/18 14:59 Consult to Urology [CONS] Routine Consulting Provider: [facility] Reason for Consult: urinary retention Call Completed: No Discharging clinician: Jamaal Montoya Anticipated date of discharge: 01/24/18 - Constitutional Vitals: Temp Pulse Resp BP Pulse Ox 97.8 F 73 15 141/76 92 01/24/18 09:00 01/24/18 09:00 01/24/18 09:00 01/24/18 09:00 01/24/18 09:00 General appearance: Present: cachectic, cooperative, A&O X 3, pleasant, no acute distress, answers questions appropriately - Respiratory Respiratory exam: Present: CTAB. Absent: accessory muscle use, rales, rhonchi, wheezes Additional comments: Normal WOB - Cardiovascular Cardiovascular exam: Present: RRR, +S1. Absent: diastolic murmur, gallop, rubs , systolic murmur Additional comments: No BLE edema - GI/Abdominal GI/Abdominal exam: Present: normal bowel sounds, soft. Absent: distended, hepatomegaly, mass, splenomegaly, tenderness - Psychiatric Psychiatric exam: Present: normal affect, normal mood. Absent: agitated, anxious, depressed - Skin Skin exam: Present: dry, intact, warm. Absent: cyanosis, rash - Patient Status Disposition: Home, Self-Care Condition: Good Overall status at discharge: patient is progressing back to baseline - Discharge Instructions Follow Up With: Batsheva Ochoa CNP [Primary Care Provider] - (WEB REQUEST SENT ON 01/22/18) Additional Instructions: Follow up with PCP in 2-3 days after discharge. - Diet and Activity Activity: wear oxygen at all times (Wean as tolerated to room air.) Diet: other (Advanced Soft Diet with Chopped Meat and Ensure Enlive Supplementation BID)
--- NOTE | 2018-01-24 19:17 | Electrocardiograph Report ---
[place] [id number] Test Date: 2018-01-22 Pat Name: Rakesh Vale Department: 103 Room: 2A24 Gender: M [employer] Manager: : [id number] Requested By: Tiago Hernandez Order Number: [id number] Reading MD: Reny Aly Measurements Intervals [place] Rate: 95 P: 74 LA: 177 QRS: -56 QRSD: 90 T: 53 QT: 341 QTc: 394 Interpretive Statements SINUS RHYTHM LEFT ANTERIOR FASCICULAR BLOCK [QRS AXIS <= -45, QR IN I, RS IN II] ANTEROSEPTAL MYOCARDIAL INFARCTION [40+ ms Q WAVE IN V1-V4], OF INDETERMINATE AGE Electronically Signed On 01-24-2018 19:15:49 EDT by Reny Aly
== END 2018-01-24 15:24 | disposition home or self-care (01) | DRG 190 ==
LOC: EMEROO 05:40 → 2ANU 05:40
PROVIDERS: ADMIT Internal Medicine; ATTEND Internal Medicine